=== PATIENT | female | born 1965 | race Caucasian/White ===

== ENCOUNTER 2017-10-28 07:02 | Inpatient (IN) ==
--- NOTE | 2017-10-27 21:37 | Discharge Summary ---
<Suki Colin - Last Filed: 10/27/17 21:33> Date of Encounter: 10/27/17 - Discharge Diagnosis (1) Status post knee replacement Priority: Primary Status: Acute (2) Arthritis of left knee Priority: Primary Status: Acute (3) Depression Priority: Secondary Status: Chronic Qualifiers: Depression Type: unspecified Qualified Code(s): F32.9 - Major depressive disorder, single episode, unspecified (4) Obesity Priority: Secondary Status: Chronic Qualifiers: Obesity type: unspecified obesity type Obesity classification: unspecified obesity classification Serious obesity comorbidity presence: unspecified whether serious comorbidity present Qualified Code(s): E66.9 - Obesity, unspecified - Hospital Course Hospital course: Ms. Heredia is a 51 year old female - Time Spent with Patient Total time spent providing and/or coordinating discharge services: - Discharge Medications Home Medications: Aspirin Enteric Coated [Aspirin EC] 325 mg PO BID 10 Days #20 tablet. [Rx] OxyCODONE Immed Rel [Roxicodone 5 MG] 5 mg PO Q6HR PRN 7 Days #28 tablet [Rx] Albuterol Sulfate [Albuterol Inhaler] 2 puff IH Q4-6H PRN 10/28/17 [History] Citalopram Hydrobromide [Citalopram HBr] 20 mg PO DAILY 10/28/17 [History] Cyanocobalamin (Vitamin B-12) [Vitamin B-12] 1,000 mcg PO DAILY 10/28/17 [ History] Divalproex (12 HR) [Depakote (12 HR)] 250 mg PO TID 10/28/17 [History] Montelukast [Singulair] 10 mg PO HS 10/28/17 [History] Multivitamin [One Daily Essential] 1 tab PO DAILY 10/28/17 [History] Allergies/Adverse Reactions: 3 Allergy/AdvReac Type Severity Reaction Status Date / Time Penicillins [PCN] Allergy Swelling Verified 10/28/17 07:34 of Lip/Tongue/Throat Primary care physician: PCP NONE - Patient Status Disposition: Home, Self-Care Condition: Good - Discharge Instructions Follow Up With: NONE,PCP [Primary Care Provider] - <Melchor Reyes - Last Filed: 10/29/17 06:37> Orders not resulted at time of discharge: Pending orders 10/28/17 01:00 XR knee LT limited 1-2V [XR] Routine Hemoglobin and Hematocrit [HEME] Routine Date of Encounter: 10/29/17 Time of Encounter: 06:37 - Discharge Diagnosis (1) Morbid obesity with BMI of 45.0-49.9, adult Priority: Secondary Status: Chronic (2) Arthritis of left knee Priority: Primary Status: Acute (3) Depression Priority: Secondary Status: Chronic Qualifiers: Depression Type: unspecified Qualified Code(s): F32.9 - Major depressive disorder, single episode, unspecified (4) Status post knee replacement Priority: Primary Status: Acute Qualifiers: Laterality: left Qualified Code(s): Z96.652 - Presence of left artificial knee joint - Hospital Course Hospital course: Ms. Heredia is a 51 year old female The patient had an uneventful postoperative course. They received antibiotics and physical therapy and were discharged in stable condition. There will follow -up in the office in 2 weeks. Status post total knee replacement - Time Spent with Patient Total time spent providing and/or coordinating discharge services: Primary care physician: PCP NONE - Patient Status Functional capacity at discharge: uses cane/walker Overall status at discharge: patient is progressing back to baseline
--- NOTE | 2017-10-27 21:38 | Physician Discharge Referral ---
Home Health/Hosp Referral Info Transfer to: Home Health Attending Provider: Dr Reyes - Diagnosis (1) Status post knee replacement Priority: Primary Status: Acute (2) Arthritis of left knee Priority: Primary Status: Acute (3) Depression Priority: Secondary Status: Chronic (4) Obesity Priority: Secondary Status: Chronic - Respiratory Orders Smoking Cessation: Smoking cessation has been advised. For more information, call the [place] Tobacco Quit Line at 2-333-PDSM-NOW. - Dressing/Wound Care Site: left knee Type of Dressing/Treatments w/Frequency: Opsite placed. Keep dressing intact until first follow up appointment. If greater than 50% saturated, notify office, remove dressing and place appropriate dressing back in place. Leave Zipline intact. Opsite dressing is water resistant, not water-proof. OK to shower, but do not get dressing wet. - Diet/Nutrition Diet/Nutrition Orders: Regular - Activity Activity Orders: Up ad gigi, Ambulate, Chair, Walker Activity: List: Total Knee replacement Precautions x 6 weeks Apply cold therapy wrap 3-6x/day for 20 minutes at a time. Encourage ambulation throughout the day and incentive spirometer 10x/hour. Elevate affected extremity above heart as tolerated. Brace: Wear knee immobilizer at night x 2 weeks. - Services Needed Following services are medically necessary services: Nursing, Home Health Aide, Physical Therapy, Occupational Therapy - Transfer Medications Prescriptions: OxyCODONE Immed Rel [Roxicodone 5 MG] 5 mg PO Q6HR PRN 7 Days #28 tablet PRN Reason: Severe Pain Aspirin Enteric Coated [Aspirin EC] 325 mg PO BID 10 Days #20 tablet. Home Medications: Aspirin Enteric Coated [Aspirin EC] 325 mg PO BID 10 Days #20 tablet. [Rx] OxyCODONE Immed Rel [Roxicodone 5 MG] 5 mg PO Q6HR PRN 7 Days #28 tablet [Rx] Certification: Further, I certify that my clinical findings support that this patient is homebound (i.e. absences from home require considerable and taxing effort and are for medical reasons or islam services or infrequently or short duration when for other reasons) because: Homebound Reason: Post-surgery restriction and or conditions limit ability to leave home Attestation: My signature below is to certify that this patient is under my care and that I, or nurse practitioner, or a physician press assistant working with me, has a face-to- face encounter with this patient.
[2017-10-28] MEDS ORDERED: Clindamycin 900 MG/50 ML 900 MG/50 ML IV.SOLN IVPB ONE (07:17)
[2017-10-28] MEDS ORDERED: Ringers Solution, Lactated 1,000 ML IVC SCH ×2 (07:30→12:32)
--- NOTE | 2017-10-28 07:47 | History & Physical Report ---
Date of Encounter: 10/28/17 Time of Encounter: 07:47 24 Hour HP Update - Instructions Instructions: If the History and Physical is less than 30 days old and was completed prior to A.M. admission and or procedure and has NOT been updated on calendar day of procedure please complete this update prior to performing procedure. - Update Patient reports changes in Medical Condition: No Changes in examination, assessment, or condition: No Changes in Medication: No Preop tests/diagnostics Reviewed: Yes Surgery Remains Indicated: Yes Consent for Planned Operative Procedure(s) Verified: Yes - Pre-Operative Checklist Preoperative Checklist Indicated: No Prophylactic Antibiotic Ordered: Yes Is VTE Prophylaxis Indicated?: Yes
--- NOTE | 2017-10-28 08:04 | Anesthesia Evaluation PreOp ---
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 [Rx] OxyCODONE Immed Rel [Roxicodone 5 MG] 5 mg PO Q6HR PRN 7 Days #28 tablet [Rx] Albuterol Sulfate [Albuterol Inhaler] 2 puff IH Q4-6H PRN 10/28/17 [History] Citalopram Hydrobromide [Citalopram HBr] 20 mg PO DAILY 10/28/17 [History] Cyanocobalamin (Vitamin B-12) [Vitamin B-12] 1,000 mcg PO DAILY 10/28/17 [ History] Divalproex (12 HR) [Depakote (12 HR)] 250 mg PO TID 10/28/17 [History] Montelukast [Singulair] 10 mg PO HS 10/28/17 [History] Multivitamin [One Daily Essential] 1 tab PO DAILY 10/28/17 [History] 3 Allergy/AdvReac Type Severity Reaction Status Date / Time Penicillins [PCN] Allergy Swelling Verified 10/28/17 07:34 of Lip/Tongue/Throat - Meds/Allergy Pre-op Review Medications Reviewed: Yes Allergies Reviewed: Yes Beta Blockers on Current Med List: No Anesthesia Results - Labs Laboratory Tests 10/22/17 10/22/17 10/22/17 11:50 11:50 11:50 WBC 11.4 H Hgb 14.7 Hct 43.5 Plt Count 172 PT 10.4 INR 1.0 APTT 21.6 L Sodium 134 L Potassium 4.1 BUN 14 Creatinine 0.63 Laboratory Tests 10/22/17 11:50 Serum , Qual Negative - Imaging EKG: report reviewed (10/22/2017 SINUS RHYTHM) Anesthesia Exam O2 Sat Height 1.52 m Height 1.52 m Weight 115.666 kg Weight 115.666 kg O2 Sat by Pulse Oximetry 98 Vital Signs Temp Pulse Resp BP Pulse Ox 97.8 F 84 18 136/83 98 10/28/17 07:22 10/28/17 07:22 10/28/17 07:22 10/28/17 07:22 10/28/17 07:22 Height: 5'/1.52 m Weight: 255 lbs/115.7 kg NPO (# of Hours): 8 Pain Scale: 8 (left knee) Pain Scale Used: Numeric (1 - 10) - HEENT Pupil (Motor): EOMI Mallampati: III Teeth: Normal Oral Opening: Greater than 3 - SECURITY TEST ENGINEER LOC: Oriented SECURITY TEST ENGINEER Motor: Normal RUE, Normal LUE, Normal RLE, Normal LLE, Normal Face SECURITY TEST ENGINEER Sensory: Normal: RUE, LUE, RLE, LLE, Face - Cardiac Rhythm: Regular Murmur: None - Pulmonary Breath Sounds: bilateral Clear Respiratory Effort: Symmetrical Anesthesia Assess/Plan ASA Score: 3 Modified Noe Scale for Level of Consciousness: Cooperative, oriented, and tranquil Anesthetic Plan: General, Regional Monitoring Plan: Standard Monitors Recovery Plan: PACU
[2017-10-28] MEDS ORDERED: Dexamethasone 4 MG/ML VIAL IVP ONE (08:30)
[2017-10-28] MEDS ORDERED: Ondansetron 4 MG/2 ML VIAL IVP ONE (08:30)
[2017-10-28] MEDS ORDERED: *HR* Promethazine 25 MG/ML VIAL IVP PRN (08:30)
[2017-10-28] MEDS ORDERED: *HR* Labetalol 20 MG/4 ML SYRINGE IVP PRN (08:30)
[2017-10-28] MEDS ORDERED: Ketorolac 30 MG/ML VIAL ONE (08:35)
[2017-10-28] MEDS ORDERED: *HR* Propofol 200 MG/20 ML VIAL IVP ONE (08:35)
[2017-10-28] MEDS ORDERED: Ondansetron 4 MG/2 ML VIAL ONE (08:35)
[2017-10-28] MEDS ORDERED: Dexamethasone 4 MG/ML VIAL ONE (08:35)
[2017-10-28] MEDS ORDERED: Lidocaine -MPF 2% 2 ML VIAL ONE (08:35)
[2017-10-28] MEDS ORDERED: *HR* Midazolam HCl 2 MG/2 ML VIAL ONE (08:35)
[2017-10-28] MEDS ORDERED: *HR* FentaNYL (PF) 100 MCG/2 ML VIAL ONE ×3 (08:35→10:38)
[2017-10-28] MEDS ORDERED: ROPIVACAINE HCL/PF 0.5% 30 ML VIAL ONE (09:19)
[2017-10-28] MEDS ORDERED: Ethanol\\Acetic Acid\\Na Ace\\Ben 1,000 ML IRRIG.SOLN IR ONE (09:33)
[2017-10-28] MEDS ORDERED: Bupivacaine/Clonidine Syringe 1 EACH SYRINGE ONE (09:34)
--- NOTE | 2017-10-28 09:52 | Anesthesia Procedures ---
Date of Encounter: 10/28/17 Time of Encounter: 09:50 Procedures: Anesthesia - Nerve Block Procedure Date: 10/28/17 Time: 09:50 Allergies/Adv Reactions: PCN Pre-op Diagnosis: lwft knee arthritis Surgical Procedure: left total knee Checklist: Correct Patient Identifier, Correct procedure, History checked Correct side: Left Blood Thinner: No Monitor Applied: BP, Pulse Oximetry Supplemental Oxygen via Nasal Cannula (L/min): 2 Sedation: Versed (mg): 2 Sedation: Fentanyl (mcg): 100 Indication: Post Op Analgesia (per dr. rowe) Pre-op Neuro Deficits: No Block Type: Femoral, Other (ipack) Catheter placed: No Sterile Technique: Yes Ultrasound used: Yes Anatomy identified: Yes Visual spread of Local: Yes Neuro Stimulation: Yes Nerve Stimulator Range: >0.4 - 0.6 mA Blood on Needle Aspiration: No Smooth Injection of Local: Yes Pain with Injection of Local: No Prep: Chlorhexadine Needle: 22 x 50 mm Stimuplex (femoral), 21 x 100 mm Stimuplex (ipack echogenic) Local: 0.25% Bupivicaine w/Clonidine 20 mcg/cc (ipack), Ropivacaine (30cc 0.5% fem) Volume (cc): 30, 20 Number of Attempts: 1 Complications: None/effective block Vitals: Vital Signs/O2 Sat, Most Current Temp Pulse Resp BP Pulse Ox 97.8 F 91 16 138/91 98 10/28/17 07:22 10/28/17 09:38 10/28/17 09:38 10/28/17 09:38 10/28/17 09:38 Comments: no complications
[2017-10-28] MEDS ORDERED: Acetaminophen IV 1,000 MG/100 ML INFUS..BTL ONE (10:31)
--- NOTE | 2017-10-28 10:50 | Orthopedic Operative Note ---
Date of procedure: 10/28/17 Pre-op diagnosis: Knee arthritis left Post-op diagnosis: same Procedure: Procedure: Left robotic-assisted Total knee replacement Estimated blood loss: 200 cc Hardware: Metal and polyethylene replacement. [place] Femur: 2 Tibia: 3 TS insert: 13 Patella: 36 Exam Under anesthesia: 11 degree flexion contracture 6 degrees varus as calculated by the robot full flexion and no instability Procedural Notes: Grade 4 arthritic changes all 3 compartments. Operative procedure: The patient was brought to the operating room and placed on the operating room table. After general anesthesia was administered the operative knee was examined. Findings were noted in the exam under anesthesia. The operative extremity was prepped and draped in sterile surgical fashion. The patient received IV antibiotics prior to skin incision. A standard midline incision was made centered over the patella. The incision was made through the skin and subcutaneous tissue. A medial parapatellar tendon approach was performed. Care was taken to preserve tissue along the medial aspect of the patella. And to protect the patella tendon. The deep MCL was released off the medial tibia. The infra patella fat pad was excised. The patella was everted and cut was made at the level of the insertion of the quadriceps and patella tendon. The patella was sized to a 36 the guide was seated and the lug holes are drilled. Knee was brought into flexion. Patient noted to have grade 4 arthritic changes all 3 compartments. Steinmann pins were placed in the tibia and the femur for the tibial and femoral arrays respectively. Checkpoints were also placed in the tibia and the femur for calculation purposes. The knee including the femur and the tibial registered. Osteophytes, ACL and PCL were excised at this point. Extension and flexion were assessed with a valgus stress components were adjusted on the computer to balance the knee. Femoral cuts were made first with robotic assistance, these included the anterior cut posterior cuts chamfer cuts. Tibial cut was then performed with robotic assistance as well. Bone fragments were removed, as well as the medial and lateral meniscus. The size 2 femoral guide was seated box cut was made lug holes are drilled. The size 3 tibial tray was seated and prepared with the fin cutter. Trial reduction with the 13 TS Sona revealed extension of 0 degree and 2 degrees varus full flexion. No varus valgus instability. Trial reduction revealed excellent patella tracking. All trial components were removed all bony surfaces were irrigated. The Tibia was seated followed by the femur, The Sona size 13 was seated and secured patella. Patient had similar findings for motion and stability. The knee was closed by the PA. The knee was then irrigated out with 2 L of pulse irrigation. The extensor mechanism was closed with #2 FiberWire suture and #2 PDS suture. The subcutaneous tissue was then irrigated and closed deep with #1 PDS suture superficially with 0 PDS suture and skin was closed with zip tie The patient was then placed in a sterile dressing and a postoperative brace extubated and transferred to recovery room in stable condition. Anesthesia: GETA Surgeon: Melchor Reyes Was there an assistant sales center manager present: No Estimated blood loss (cc): 200 Condition: stable Disposition: PACU
[2017-10-28] MEDS: *HR* HYDROmorphone (PF) 1 MG/ML SYRINGE IVP PRN ×2 (11:27→11:40)
[2017-10-28 11:45] LABS: Hemoglobin 13.7 g/dL (11.5-15.4)
--- NOTE | 2017-10-28 12:03 | Anesthesia Evaluation Post Op ---
Date of Encounter: 10/28/17 Time of Encounter: 12:01 - Vital Signs Vital Signs: Vital Signs/O2 Sat, Most Current Temp Pulse Resp BP Pulse Ox 97.8 F 91 16 133/84 97 10/28/17 11:52 10/28/17 11:52 10/28/17 11:52 10/28/17 11:52 10/28/17 11:52 - Lungs Lungs: Clear Ascult./Percussion - Airway Airway: Non-obstructed - Cardiovascular Regular Rate - Mental Status Mental Status: Alert & Oriented, Answers Appropriately - Pain Pain Scale: 5 (stated it was a 20, now it is 10) Pain Scale used: Numeric (1 - 10) - Nausea Vomiting Nausea Vomiting: Not Present - Hydration Hydration: Tolerates oral liquids, Has not voided - Discharge PostOp Status: Transfer Patient to floor
[2017-10-28] MEDS ORDERED: *HR* OxyCODONE/APAP 5/325 TABLET PO PRN (12:32)
[2017-10-28] MEDS ORDERED: Naloxone 0.4 MG/ML INJ IVP PRN (12:32)
[2017-10-28] MEDS ORDERED: Sennosides 8.6 MG TABLET PO PRN (12:32)
[2017-10-28] MEDS ORDERED: traMADol 50 MG TABLET PO PRN (12:32)
[2017-10-28] MEDS ORDERED: Temazepam 15 MG CAPSULE PO PRN (12:32)
[2017-10-28] MEDS ORDERED: Ondansetron 4 MG/2 ML VIAL IVP PRN (12:32)
[2017-10-28] MEDS ORDERED: Clindamycin 900 MG/50 ML 900 MG/50 ML IV.SOLN IVPB SCH (12:32)
[2017-10-28] MEDS ORDERED: MOM Conc 10 ML UD.LIQ PO PRN (12:32)
[2017-10-28] MEDS: Multivit/Ca/Min/Fe/FA 1 TAB TABLET PO SCH (13:22)
[2017-10-28] MEDS: Cyanocobalamin (B-12) 1,000 MCG TABLET PO SCH (13:22)
[2017-10-28] MEDS: Divalproex (12 HR) 250 MG TABLET PO SCH ×2 (13:22→21:33)
[2017-10-28] MEDS: *HR* OxyCODONE Immed Rel 5 MG TABLET PO PRN ×2 (13:26→19:35)
[2017-10-28] MEDS: *HR* Enoxaparin 30 MG/0.3 ML SYRINGE SQ SCH (18:00)
[2017-10-28] MEDS ORDERED: *HR* Enoxaparin 30 MG/0.3 ML SYRINGE SQ SCH (18:00)
[2017-10-28] MEDS: Clindamycin 900 MG/50 ML 900 MG/50 ML IV.SOLN IVPB SCH (18:01)
[2017-10-29] MEDS: Clindamycin 900 MG/50 ML 900 MG/50 ML IV.SOLN IVPB SCH (01:46)
[2017-10-29] MEDS: *HR* OxyCODONE Immed Rel 5 MG TABLET PO PRN ×2 (03:23→10:25)
[2017-10-29] MEDS: *HR* Enoxaparin 30 MG/0.3 ML SYRINGE SQ SCH (05:48)
[2017-10-29 06:18] LABS: Hemoglobin 12.2 g/dL (11.5-15.4)
[2017-10-29 06:36] LABS: BUN/Creatinine Ratio 15 (6-26); Blood Urea Nitrogen 9 mg/dL (6-20); Calcium 8.6 mg/dL (8.6-10.3); Carbon Dioxide 29 mEq/L (23-29); Chloride 101 mEq/L (98-107); Glucose 203 mg/dL (70-105); Osmolality,Calculated 280 (280-300); Potassium 4.2 mEq/L (3.5-5.1); Sodium 133 mEq/L (136-145); eGFR For African Americans > 60 (> 60); eGFR For Non-African Americans > 60 (> 60)
--- NOTE | 2017-10-29 06:38 | Orthopedics Progress Note ---
Date of Encounter: 10/29/17 Time of Encounter: 06:37 - Assessment and Plan (1) Morbid obesity with BMI of 45.0-49.9, adult Current Visit: Yes Status: Chronic (2) Arthritis of left knee Current Visit: No Status: Acute (3) Depression Current Visit: No Status: Chronic Qualifiers: Depression Type: unspecified Qualified Code(s): F32.9 - Major depressive disorder, single episode, unspecified (4) Status post knee replacement Current Visit: No Status: Acute Qualifiers: Laterality: left Qualified Code(s): Z96.652 - Presence of left artificial knee joint Subjective Interval history: Patient was seen this morning doing well without complaints. Afebrile vital signs stable. Operative extremity: Neurovascularly intact Dressing clean dry and intact [place] nontender Assessment and plan: Continue with postoperative care Hematocrit 37 discharged today Objective Vital signs: Vital Signs Temp Pulse Resp BP Pulse Ox 10/29/17 03:35 97.4 F L 77 16 113/75 96 10/28/17 23:06 98.4 F 86 18 109/73 96 10/28/17 19:09 97.8 F 86 18 106/69 93 10/28/17 14:59 98.4 F 94 18 142/93 95 10/28/17 14:07 98.5 F 89 16 139/73 95 10/28/17 13:18 98.4 F 92 14 142/93 95 10/28/17 12:50 98.3 F 90 15 134/84 96 10/28/17 12:25 98.1 F 90 15 141/76 98 10/28/17 12:02 97.8 F 89 16 136/77 97 10/28/17 11:52 97.8 F 91 16 133/84 97 10/28/17 11:42 87 16 131/86 95 10/28/17 11:32 94 16 139/88 96 10/28/17 11:22 97.1 F L 89 16 132/93 97 10/28/17 09:38 91 16 138/91 98 10/28/17 09:22 92 18 132/91 99 10/28/17 07:22 97.8 F 84 18 136/83 98 Intake and Output 10/28/17 10/28/17 10/29/17 15:59 23:59 07:59 Intake Total 50 / 50 650 / 650 600 / 600 Output Total 700 / 700 2099 / 2100 800 / 800 Balance -650 / -650 -1450 / -1450 -200 / -200 Intake: IV Fluids 50 / 50 50 / 50 Cleocin Premix 900 MG/50 ML 900 50 / 50 50 / 50 mg In 50 ml @ 50 mls/hr IVPB Q8H NA Rx#:[id number] Oral 600 / 600 600 / 600 Output: Urine 500 / 500 2099 / 2100 800 / 800 Estimated Blood Loss 200 / 200 Other: # Voids 1 - Labs CBC & BMP: 10/29/17 05:26 10/29/17 05:26 Labs: Abnormal lab results Sodium 133 mEq/L (136-145) L 10/29/17 05:26 Creatinine 0.59 mg/dL (0.60-1.20) L 10/29/17 05:26 Glucose 203 mg/dL (70-105) H 10/29/17 05:26 - VTE Documentation of Mechanical Device: Venous foot pump, device Consult Discharge Plan - Plan Referrals: NONE,PCP [Primary Care Provider] -
[2017-10-29] MEDS: Multivit/Ca/Min/Fe/FA 1 TAB TABLET PO SCH (07:46)
[2017-10-29] MEDS: Divalproex (12 HR) 250 MG TABLET PO SCH (07:46)
[2017-10-29] MEDS: Cyanocobalamin (B-12) 1,000 MCG TABLET PO SCH (07:46)
[2017-10-29 12:21] VITALS: BP 141/89
--- NOTE | 2017-10-29 16:17 | Event Note ---
Date of Encounter: 10/29/17 Time of Encounter: 12:30 PCR- POD#1 L TKR robotic 10/28/17 Eric PCR - Patient seen at bedside. Labwork and medications reviewed. Pain control: Adequate Participating in PT. All questions and concerns addressed. Educated on use of incentive spirometer, ambulation, and hydration. Patient educated on post-operative restrictions and care. Addressed: Block still active - encouraged patient to exercise extreme caution so as to prevent falls. D/C plan: Home today with OP PT
== END 2017-10-29 13:00 | disposition home or self-care (01) | DRG 470 ==
LOC: SAMDAY 07:02 → 3NENU 12:27
PROVIDERS: ADMIT Orthopaedic Surgery; ATTEND Orthopaedic Surgery